=== PATIENT | female | born 1990 | race American Indian/Alaskan Native ===

== ENCOUNTER 2019-05-24 23:01 | Emergency (ER) | payer OTHER ==
[2019-05-25 00:19] LABS: Urine Blood 1+ (NEG); Urine Glucose NEGATIVE (NEG); Urine Protein NEGATIVE (NEG)
[2019-05-25 00:29] LABS: Urine Bacteria <20 /HPF (<20); Urine Culture Reflex Order NOT NEEDED; Urine RBC <5 /HPF (NONE SEEN)
[2019-05-25] MEDS ORDERED: PROMETHAZINE INJ 25 MG/ML AMP ONE (00:52)
[2019-05-25] MEDS ORDERED: FENTANYL CITR 100 MCG/2 ML ONE (00:53)
[2019-05-25] MEDS ORDERED: NA CHLORIDE 0.9% 1,000 ML ONE (00:53)
[2019-05-25] MEDS ORDERED: TETANUS & DIPHTHERIA TOX,ADULT 0.5 ML VIAL ONE (00:53)
[2019-05-25 00:57] LABS: Absolute Lymphocytes (CBC) 5.7 K/uL (0.7-4.9); Basophils % 0.4 % (0-1.3); Hematocrit 40.6 % (36.0-45.0); Lymphocytes % 32.8 % (15.3-44.8); MPV 10.5 fL (7.6-11.3); RBC Red Blood Cell Count 4.58 M/uL (3.86-4.86)
[2019-05-25 01:05] LABS: BUN Blood Urea Nitrogen 15 mg/dL (7-18); Bicarbonate 30 mmol/L (21-32); Glucose Level 97 mg/dL (74-106); Potassium 3.6 mmol/L (3.5-5.1); Sodium Level 141 mmol/L (136-145); Troponin (Emerg Dept Use Only) < 0.02 ng/mL (0.0-0.045)
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
[2019-05-25 04:25] VITALS: TEMP 98
[2019-05-25 04:31] VITALS: BP 114/75; O2SAT 98
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
== END 2019-05-25 04:06 | disposition home or self-care (01) ==
LOC: ER 23:01
DX: S20.319A Abrasion of unspecified front wall of thorax, initial encounter (principal); V49.40XA Driver injured in collision with unspecified motor vehicles in traffic accident, initial encounter; Z88.0 Allergy status to penicillin; Z23 Encounter for immunization
CPT/HCPCS: 96361; 87088; 85025; 87086; 80048; 36415; 86900; 86850; 81025; 86901; 81003; 81015; 84484; 70450; 72125; 71260; 74177; 90471; 90714; 96375; 96374; 99285; Q9967; J2550; J3010; J7030

== ENCOUNTER 2023-03-31 03:11 | Emergency (ER) | payer OTHER ==
[2023-03-31] MEDS ORDERED: NA CHLORIDE 0.9% 1,000 ML ONE (04:03)
[2023-03-31] MEDS ORDERED: FAMOTIDINE 20 MG/2 ML VIAL IV ONE (04:03)
[2023-03-31] MEDS ORDERED: ONDANSETRON 4 MG/2 ML VIAL ONE (04:03)
[2023-03-31 04:37] LABS: Specific Gravity 1.011 (1.005-1.030); Urine Bilirubin NEGATIVE (Negative); Urine Blood Negative (Negative); Urine Clarity Clear (Clear); Urine Color Colorless (Yellow); Urine Glucose 1+ (Negative); Urine Protein NEGATIVE (Negative); Urine Urobilinogen Normal (Normal); Urine pH 6.5 (5.0-7.0)
[2023-03-31 04:38] LABS: Specific Gravity 1.011 (1.005-1.030)
[2023-03-31 04:47] LABS: Absolute Lymphocytes (CBC) 1.8 K/uL (0.7-4.9); Hematocrit 40.1 % (36.0-45.0); Lymphocytes % 15.6 % (15.3-44.8); MCV 86.5 fL (80-100); MPV 9.6 fL (7.6-11.3); Platelets 194 thou/uL (152-406); RBC Red Blood Cell Count 4.64 M/uL (3.86-4.86)
[2023-03-31 04:59] LABS: Albumin 3.9 g/dL (3.4-5.0); Bilirubin Total 0.6 mg/dL (0.2-1.0); Protein, Total 7.6 g/dL (6.4-8.2)
[2023-03-31 05:00] LABS: Potassium 3.9 mEq/L (3.5-5.1)
--- NOTE | 2023-03-31 06:41 | EDPHYS ---
Physician Documentation [facility] Name: Basilia Gordon Age: 32 yrs Sex: Female : 1990 Arrival Date: 03/31/2023 Time: 03:11 Bed 16 Private MD: ED Physician Uriel Mazariegos HPI: 03/31 04:35 This 32 yrs old Female presents to ER via Ambulatory with complaints of ms3 Abdominal Pain, Nausea/Vomiting, Dizziness, Tingling feeling of extremities. 04:35 32-year-old female with past medical history of hypertension, hyperlipidemia, PCOS ms3 presents to the emergency department for vomiting, diarrhea, abdominal pain that began at 2 AM. Patient states her discomfort is a 6/10 and described as cramping. Patient denies radiation of the pain. Patient endorses chills. Patient denies any alleviating or inciting factors.. 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 - Social history:: Smoking status: Patient denies any tobacco usage or history of. ROS: 04:35 Constitutional: Negative for fever, and chills. Neck: Negative for injury, pain, and ms3 swelling, Cardiovascular: Negative for chest pain, and palpitations. Respiratory: Negative for shortness of breath, cough, wheezing, and pleuritic chest pain, 04:35 MS/Extremity: Negative for injury and deformity, Skin: Negative for injury, rash, and discoloration, 04:35 Abdomen/GI: Positive for abdominal pain, nausea and vomiting, 04:35 All other systems are negative, Exam: 04:35 Constitutional: This is a well developed, well nourished patient who is awake, alert, ms3 and in no acute distress. Head/Face: Normocephalic, atraumatic. Neck: Trachea midline, no cervical lymphadenopathy. Supple, full range of motion without nuchal rigidity, or vertebral point tenderness. No Meningismus. Chest/axilla: Normal chest wall appearance and motion. Nontender with no deformity. Cardiovascular: Regular rate and rhythm with a normal S1 and S2. No gallops, murmurs, or rubs. Normal PMI, no JVD. No pulse deficits. Respiratory: Lungs have equal breath sounds bilaterally, clear to auscultation and percussion. No rales, rhonchi or wheezes noted. No increased work of breathing, no retractions or nasal flaring. 04:35 Abdomen/GI: Inspection: abdomen appears normal, Bowel sounds: normal, Palpation: moderate abdominal tenderness, in the right lower quadrant and left lower quadrant, Vital Signs: 03:32 BP 149 / 86; Pulse 64; Resp 18 S; Temp 97.6(O); Pulse Ox 100% on R/A; Weight 102.06 kg as6 (R); Height 5 ft. 4 in. (R); Pain 8/10; 03:32 Body Mass Index 38.62 (102.06 kg, 162.56 cm) as6 03:32 Pain Scale: Adult as6 William Coma Score: 03:38 Eye Response: spontaneous(4). Motor Response: obeys commands(6). Verbal Response: nw1 oriented(5). Total: 15. MDM: 03:38 Patient medically screened. ms3 04:35 Differential diagnosis: Nonspecific abd pain, diverticulitis, viral gastroenteritis, ms3 gastroenteritis. 06:43 Data reviewed: vital signs, nurses notes, lab test result(s), radiologic studies, CT ms3 scan, and as a result, I will discharge patient. I considered the following discharge prescriptions or medication management in the emergency department Medications were administered in the Emergency Department. See MAR. Historians other than the Patient: Spouse/Significant Other: Patient's . Care significantly affected by the following chronic conditions: Hypertension. Counseling: I had a detailed discussion with the patient and/or guardian regarding the historical points, exam findings, and any diagnostic results supporting the discharge/admit diagnosis, lab results, radiology results, the need for outpatient follow up, to return to the emergency department if symptoms worsen or persist or if there are any questions or concerns that arise at home. Special discussion: Based on the patient's Hx, exam, and Dx evaluation, there is no indication for emergent surgery or inpatient Tx. It is understood by the patient/guardian that if the Sx's persist or worsen they need to return immediately for re-evaluation. ED course: Discussed labs, CT scan with patient and her . Patient to follow-up with Dr. Pickett in 2 to 3 days. Patient understands and agrees with plan. Patient given prescription for ondansetron. All questions were answered. Return precautions discussed include worsening symptoms, or any other concerns. On reevaluation patient symptoms improved, patient is alert and orient x4, in no apparent distress, nontoxic-appearing, ambulatory emergency room, speaking full sentences. 03/31 03:39 Order name: CBC with Diff; Complete Time: 05:15 ms3 03/31 03:39 Order name: CMP; Complete Time: 05:15 ms3 03/31 03:39 Order name: Lipase; Complete Time: 05:15 ms3 03/31 03:39 Order name: Test, Urine; Complete Time: 05:15 ms3 03/31 03:39 Order name: Urinalysis w/ reflexes; Complete Time: 04:40 ms3 03/31 03:39 Order name: CT Abd/Pelvis - IV Contrast Only ms3 03/31 03:39 Order name: IV Saline Lock; Complete Time: 04:45 ms3 03/31 03:39 Order name: Labs collected and sent; Complete Time: 04:45 ms3 Administered Medications: 04:47 Drug: NS 0.9% IV 1000 ml IV at 1 bolus Per protocol; 1000 mL bolus Route: IV; Rate: 1 nw1 bolus; Site: left forearm; 04:47 Drug: Famotidine IVP 20 mg IVP once; dilute with 10 mL 0.9% NaCl; give over 2 minutes nw1 Route: IVP; Site: left forearm; 04:47 Drug: Ondansetron IVP 4 mg IVP once; over 2 minutes Route: IVP; Site: left forearm; nw1 Disposition Summary: 03/31/23 06:41 Discharge Ordered Notes: Location: Home ms3 Condition: Stable ms3 Diagnosis - Abdominal pain, unspecified ms3 - Nausea with vomiting, unspecified ms3 - Diarrhea, unspecified ms3 - Essential (primary) hypertension ms3 Followup: ms3 - With: Shalom Pickett DO - When: 2 - 3 days - Reason: Recheck today's complaints Discharge Instructions: - Discharge Summary Sheet ms3 - Abdominal Pain, Adult ms3 - Diarrhea, Adult ms3 - Hypertension, Adult ms3 - Nausea and Vomiting, Adult ms3 - DASH Eating Plan ms3 Forms: - Medication Reconciliation Form ms3 - Thank You Letter ms3 - Antibiotic Education ms3 - Prescription Opioid Use ms3 - Patient Portal Instructions ms3 - Leadership Thank You Letter ms3 Prescriptions: - ondansetron 4 mg Oral Tablet,disintegrating - take 1 tablet ORAL route every 8 hours; 15 tablet; Refills: 0, Product ms3 Selection Permitted Signatures: Dispatcher [employer] EDUriel Aldridge DO DO ms3 Miguel Leonard RN RN as6 Winnie Canada RN RN nw1
--- NOTE | 2023-03-31 06:41 | ER ---
Nurse's Notes [facility] Name: Basilia Gordon Age: 32 yrs Sex: Female : 1990 Arrival Date: 03/31/2023 Time: 03:11 Bed 16 Private MD: Diagnosis: Abdominal pain, unspecified;Nausea with vomiting, unspecified;Diarrhea, unspecified;Essential (primary) hypertension Presentation: 03/31 03:34 Chief complaint: Patient states: c/o lower abdominal pain, nausea, vomiting, diarrhea, as6 and feeling faint. Coronavirus screen: At this time, the client does not indicate any symptoms associated with coronavirus-19. Ebola Screen: No symptoms or risks identified at this time. Initial Sepsis Screen: Does the patient meet any 2 criteria? No. Patient's initial sepsis screen is negative. Does the patient have a suspected source of infection? No. Patient's initial sepsis screen is negative. Risk Assessment: Do you want to hurt yourself or someone else? Patient reports no desire to harm self or others. Onset of symptoms was March 30, 2023. 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 - Social history:: Smoking status: Patient denies any tobacco usage or history of. Screenin:38 [facility] ED Fall Risk Assessment (Adult) History of falling in the last 3 months, nw1 including since admission No falls in past 3 months (0 pts) Confusion or Disorientation No (0 pts) Intoxicated or Sedated No (0 pts) Impaired Gait No (0 pts) Mobility Assist Device Used No (0 pt) Altered Elimination No (0 pt) Score/Fall Risk Level 0 - 2 = Low Risk Oriented to surroundings, Maintained a safe environment, Educated pt \T\ family on fall prevention, incl call for assistance when getting out of bed, Assessed \T\ reinforced patient's understanding of fall precautions, Provided non-skid footwear. Abuse screen: Denies threats or abuse. Denies injuries from another. Nutritional screening: No deficits noted. Tuberculosis screening: No symptoms or risk factors identified. Assessment: 03:38 Reassessment: Pt reports that she woke up with n/v and chills. Pt reports PMHx of HTN nw1 and PCOS. General: Appears uncomfortable, Behavior is calm, cooperative, appropriate for age. Pain: Complains of pain in abdomen. Neuro: No deficits noted. Level of Consciousness is awake, alert, obeys commands, Oriented to person, place, time, situation, Appropriate for age. Cardiovascular: No deficits noted. Denies chest pain. Respiratory: No deficits noted. Breath sounds are clear bilaterally. GI: Bowel sounds present X 4 quads. Abd is soft and non tender X 4 quads. Reports lower abdominal pain, upper abdominal pain, nausea, vomiting. : No deficits noted. No signs and/or symptoms were reported regarding the genitourinary system. Derm: No deficits noted. No signs and/or symptoms reported regarding the dermatologic system. Musculoskeletal: No deficits noted. No signs and/or symptoms reported regarding the musculoskeletal system. Vital Signs: 03:32 BP 149 / 86; Pulse 64; Resp 18 S; Temp 97.6(O); Pulse Ox 100% on R/A; Weight 102.06 kg as6 (R); Height 5 ft. 4 in. (R); Pain 8/10; 03:32 Body Mass Index 38.62 (102.06 kg, 162.56 cm) as6 03:32 Pain Scale: Adult as6 [place] Coma Score: 03:38 Eye Response: spontaneous(4). Motor Response: obeys commands(6). Verbal Response: nw1 oriented(5). Total: 15. ED Course: 03:14 Patient arrived in ED. [email or web address] 03:17 Uriel Mazariegos DO is Attending Physician. ms3 03:32 Arm band placed on. as6 03:35 Triage completed. as6 03:38 Patient has correct armband on for positive identification. Placed in gown. Bed in low nw1 position. Call light in reach. Side rails up X2. Adult w/ patient. Provided Education on: POC. Client placed on continuous cardiac and pulse oximetry monitoring. NIBP monitoring applied. playground monitor on. Pulse ox on. NIBP on. Door closed. Noise minimized. Lights dimmed. Warm blanket given. 03:38 No provider procedures requiring assistance completed. nw1 04:46 Lipase Sent. nw1 04:46 CBC with Diff Sent. nw1 04:46 Inserted saline lock: 20 gauge in left forearm, using aseptic technique. Blood nw1 collected. 05:28 CT Abd/Pelvis - IV Contrast Only In Process Unspecified. EDMS 06:39 Shalom Pickett DO is Referral Physician. ms3 07:08 Criselda To, RN is Primary Nurse. kc6 Administered Medications: 04:47 Drug: NS 0.9% IV 1000 ml IV at 1 bolus Per protocol; 1000 mL bolus Route: IV; Rate: 1 nw1 bolus; Site: left forearm; 04:47 Drug: Famotidine IVP 20 mg IVP once; dilute with 10 mL 0.9% NaCl; give over 2 minutes nw1 Route: IVP; Site: left forearm; 04:47 Drug: Ondansetron IVP 4 mg IVP once; over 2 minutes Route: IVP; Site: left forearm; nw1 Medication: 03:38 VIS not applicable for this client. nw1 Outcome: 06:41 Discharge ordered by . ms3 07:08 Patient left the ED. kc6 Signatures: Dispatcher [employer] EDMS Uriel Mazariegos DO DO ms3 Tonia Jacksonj6 Miguel Leonard RN RN as6 Criselda To RN RN kc6 Winnie Canada RN RN nw1
[2023-03-31 07:32] VITALS: BP 149/86; TEMP 97.6; O2SAT 100
--- NOTE | 2023-04-01 13:10 | RAD REPORT ---
EXAM DESCRIPTION: CT - Abdomen Pelvis W Contrast - 03/31/2023 8:19 am CLINICAL HISTORY: The patient is 32 years old and is Female; Abd pain;Nausea / vomiting TECHNIQUE: Axial computed tomography images of the abdomen and pelvis with intravenous contrast. S agittal and coronal reformatted images were created and reviewed. This CT exam was performed using one or more of the following dose reduction techniques: automated exposure control, adjustment of t he mA and/or kV according to patient size, and/or use of iterative reconstruction technique. COMPARISON: No relevant prior studies available. FINDINGS: Lung bases: Unremarkable. No mass. No consolidation. ABDOMEN: Liver: Unremarkable. No mass. Gallbladder and bile ducts: Unremarkable. No calcified stones. No ductal dilation. Pancreas: Unremarkable. No mass. No ductal dilation. Spleen: Unremarkable. No splenomegaly. Adrenals: Unremarkable. No mass. Kidneys and ureters: Unremarkable. No solid mass. No hydronephrosis. Stomach and bowel: Unremarkable. No obstruction. No mucosal thickening. PELVIS: Appendix: No findings to suggest acute appendicitis. Bladder: Unremarkable. Reproductive: Unremarkable as visualized. ABDOMEN and PELVIS: Intraperitoneal space: Unremarkable. No free air. No significant fluid collection. Bones/joints: No acute fracture. No dislocation. Soft tissues: Unremarkable. Vasculature: Unremarkable. No abdominal aortic aneurysm. Lymph nodes: Unremarkable. No enlarged lymph nodes. IMPRESSION: No acute finding in the abdomen/pelvis. Electronically signed by: Gurwinder Banuelos MD 03/31/2023 06:15 AM DYNAMOMETER TESTER ENGINE Due to temporary technical issues with the PACS/Fluency reporting system, reports are being signed by the in house radiologist without review as a courtesy to ensure prompt reporting. The interpreting r adiologist is fully responsible for the content of the report.
== END 2023-03-31 07:08 | disposition home or self-care (01) ==
LOC: ER 03:11
DX: R10.31 Right lower quadrant pain (principal); R11.2 Nausea with vomiting, unspecified; R19.7 Diarrhea, unspecified; I10 Essential (primary) hypertension; Z88.0 Allergy status to penicillin
CPT/HCPCS: 85025; 36415; 81025; 81003; 83690; 80053; 74177; 96375; 96374; 99284; Q9967; J2405; J7030